=== PATIENT | female | born 1985 | race Caucasian/White ===

== ENCOUNTER 2018-07-29 08:23 | Inpatient (IN) | payer OTHER, BC ==
[~2018-07-29 08:23] MED LIST: CEFAZOLIN 1 GM INJ
[2018-07-29] MEDS: SOD CHLORIDE 0.9% 1,000 ML IV ×2 (09:01→21:28)
[2018-07-29] MEDS: ONDANSETRON 4 MG INJ IV (09:01)
[2018-07-29] MEDS: morphine 4 MG/ML VIAL IV ×2 (09:01→12:34)
[2018-07-29 09:09] LABS: ADD MAN DIFF? NO
[2018-07-29 09:15] LABS: WHITE BLOOD COUNT 10.8 10^3/ul (4.8-10.8)
[2018-07-29 09:15] LABS: ABNORMAL IP MESSAGE 1; BASOPHILS % 0.2 % (0.0-2.0); EOSINOPHILS # 0.1 10^3/ul (0.0-0.5); EOSINOPHILS % 1.3 % (0.0-7.0); HEMATOCRIT 30.2 % (37.0-47.0); HEMOGLOBIN 8.4 g/dl (12.0-16.0); LYMPHOCYTES # 3.8 10^3/ul (0.8-2.9); LYMPHOCYTES % 35.2 % (15.0-51.0); MEAN CORPUSCULAR HEMOGLOBIN 18.4 pg (29.0-33.0); MEAN CORPUSCULAR HGB CONC 27.8 g/dl (32.0-37.0); MEAN CORPUSCULAR VOLUME 66.2 fl (82.0-101.0); MEAN PLATELET VOLUME 8.9 fl (7.4-10.4); MONOCYTE # 0.6 10^3/ul (0.3-0.9); MONOCYTES % 5.5 % (0.0-11.0); NEUTROPHIL # 6.2 10^3/ul (1.6-7.5); NEUTROPHILS % 57.4 % (39.0-77.0); PLATELET COUNT 598 10^3/UL (140-415); RED BLOOD COUNT 4.56 10^6/ul (4.20-5.40); RED CELL DISTRIBUTION WIDTH 17.8 % (11.5-14.5)
[2018-07-29 09:20] LABS: POSITIVE DIFF @See below
[2018-07-29 09:37] LABS: ALANINE AMINOTRANSFERASE 29 IU/L (13-69); ALBUMIN 3.7 g/dl (3.3-4.9); ALBUMIN/GLOBULIN RATIO 1.05; ALKALINE PHOSPHATASE 81 IU/L (42-121); ANION GAP 5 (5-13); ASPARTATE AMINO TRANSFERASE 24 IU/L (15-46); BILIRUBIN,INDIRECT 0.2 mg/dl (0-1.1); BILIRUBIN,TOTAL 0.2 mg/dl (0.2-1.3); BLOOD UREA NITROGEN 15 mg/dl (7-20); CALCIUM 9.2 mg/dl (8.4-10.2); CARBON DIOXIDE 27 mmol/L (21-31); CHLORIDE 107 mmol/L (97-110); CREATININE 0.59 mg/dl (0.44-1.00); Estimated GFR > 60 mL/min (>60); GLUCOSE 133 mg/dl (70-220); LIPASE 396 U/L (23-300); POTASSIUM 4.5 mmol/L (3.5-5.1); SODIUM 139 mmol/L (135-144); TOTAL PROTEIN 7.2 g/dl (6.1-8.1)
[2018-07-29] MEDS: KETOROLAC 30 MG INJ IV (09:47)
[2018-07-29 09:48] LABS: UR BILIRUBIN (Dip) NEGATIVE (NEGATIVE); UR BLOOD (Dip) NEGATIVE (NEGATIVE); UR CLARITY CLEAR (CLEAR); UR COLOR YELLOW (YELLOW); UR GLUCOSE (Dip) NEGATIVE (NEGATIVE); UR KETONES (Dip) NEGATIVE (NEGATIVE); UR NITRITE (Dip) NEGATIVE (NEGATIVE); UR TOTAL PROTEIN (Dip) NEGATIVE (NEGATIVE); UR UROBILINOGEN (Dip) NEGATIVE (NEGATIVE); URINE SPECIFIC GRAVITY (Dip) 1.025 (1.003-1.030)
[2018-07-29 09:49] LABS: ADD UMIC NO; UR ASCORBIC ACID NEGATIVE (NEGATIVE); UR BACTERIA FEW /HPF (NONE SEEN); UR LEUKOCYTE ESTERASE (Dip) NEGATIVE Leu/ul (NEGATIVE); UR MUCUS FEW /HPF (NONE SEEN); UR RBC 4 /HPF (0-5); UR SQUAMOUS EPITHELIAL CELL FEW /HPF (FEW); UR WBC 2 /HPF (0-5)
[2018-07-29] MEDS: LORAZEPAM 2 MG INJ IV (10:41)
[2018-07-29] MEDS: DIPHENHYDRAMINE 50 MG INJ IV (14:24)
[2018-07-29] MEDS ORDERED: ONDANSETRON 4 MG INJ IV ×3 (14:30→20:00)
[2018-07-29] MEDS ORDERED: ACETAMINOPHEN 325 MG TAB PO ×2 (14:30→20:00)
[2018-07-29] MEDS ORDERED: LIDOCAINE 1%/EPI (1:100,000) (MDV) 20 ML (15:52)
[2018-07-29] MEDS ORDERED: ROCURONIUM 50 MG INJ (16:12)
[2018-07-29] MEDS ORDERED: SUCCINYLCHOLINE CHLORIDE 100 MG/5 ML SYG IV (16:12)
[2018-07-29] MEDS ORDERED: GLYCOPYRROLATE 0.4 MG INJ ×2 (16:12→17:02)
[2018-07-29] MEDS ORDERED: PROPOFOL 20 ML (16:12)
[2018-07-29] MEDS ORDERED: NEOSTIGMINE 3 MG/3 ML SYRINGE ×2 (16:12→17:02)
[2018-07-29] MEDS ORDERED: LIDOCAINE 2% (SDV) 5 ML INJ (16:12)
[2018-07-29] MEDS ORDERED: MEPERIDINE 100 MG INJ (16:12)
[2018-07-29] MEDS ORDERED: METOCLOPRAMIDE 10 MG INJ ×2 (17:02→18:10)
[2018-07-29] MEDS ORDERED: ONDANSETRON 4 MG INJ (17:02)
[2018-07-29] MEDS ORDERED: hydrALAzine 20 MG INJ IV (18:00)
[2018-07-29] MEDS ORDERED: DIPHENHYDRAMINE 50 MG INJ IV (18:00)
[2018-07-29] MEDS ORDERED: MIDAZOLAM 1 MG/ML 2 ML INJ IV (18:00)
[2018-07-29] MEDS ORDERED: EPHEDrine SULFATE 50 MG/5 ML SYG IV (18:00)
[2018-07-29] MEDS ORDERED: FENTAnyl 50 MCG/ML VIAL IV ×3 (18:00)
[2018-07-29] MEDS ORDERED: LABETALOL HCL 20MG INJ IV (18:00)
[2018-07-29] MEDS ORDERED: OXYCODONE/ACETAMINOPHEN (5/325) TAB PO ×2 (18:00)
[2018-07-29] MEDS ORDERED: HYDROmorphONE 1 MG/5 ML IV SYRINGE IV ×3 (18:00→18:10)
[2018-07-29] MEDS ORDERED: MEPERIDINE 25 MG INJ IV (18:00)
[2018-07-29] MEDS: HYDROmorphONE 1 MG/5 ML IV SYRINGE IV ×2 (18:13→18:40)
[2018-07-29] MEDS: METOCLOPRAMIDE 10 MG INJ IV (18:13)
[2018-07-29] MEDS ORDERED: BISACODYL (EC) 5 MG TAB PO (20:00)
[2018-07-29] MEDS ORDERED: NACL 0.9% 3 ML SYG IV (20:00)
[2018-07-29] MEDS ORDERED: DOCUSATE SODIUM 100 MG CAP PO (20:00)
[2018-07-29] MEDS: morphine 2 MG INJ IV (20:01)
[2018-07-29 20:24] LABS: ADD MAN DIFF? NO
[2018-07-29 20:26] LABS: WHITE BLOOD COUNT 12.3 10^3/ul (4.8-10.8)
[2018-07-29 20:26] LABS: ABNORMAL IP MESSAGE 1; BASOPHILS % 0.2 % (0.0-2.0); EOSINOPHILS # 0.1 10^3/ul (0.0-0.5); EOSINOPHILS % 0.8 % (0.0-7.0); HEMATOCRIT 26.8 % (37.0-47.0); HEMOGLOBIN 7.6 g/dl (12.0-16.0); LYMPHOCYTES # 2.7 10^3/ul (0.8-2.9); LYMPHOCYTES % 21.6 % (15.0-51.0); MEAN CORPUSCULAR HGB CONC 28.4 g/dl (32.0-37.0); MEAN CORPUSCULAR VOLUME 66.8 fl (82.0-101.0); MEAN PLATELET VOLUME 8.4 fl (7.4-10.4); MONOCYTE # 0.5 10^3/ul (0.3-0.9); MONOCYTES % 4.2 % (0.0-11.0); NEUTROPHILS % 72.6 % (39.0-77.0); PLATELET COUNT 468 10^3/UL (140-415); RED BLOOD COUNT 4.01 10^6/ul (4.20-5.40); RED CELL DISTRIBUTION WIDTH 17.7 % (11.5-14.5)
[2018-07-29 20:45] LABS: ALANINE AMINOTRANSFERASE 31 IU/L (13-69); ALBUMIN 3.3 g/dl (3.3-4.9); ALKALINE PHOSPHATASE 70 IU/L (42-121); ANION GAP 7 (5-13); ASPARTATE AMINO TRANSFERASE 21 IU/L (15-46); BILIRUBIN,INDIRECT 0.1 mg/dl (0-1.1); BILIRUBIN,TOTAL 0.1 mg/dl (0.2-1.3); BLOOD UREA NITROGEN 15 mg/dl (7-20); CALCIUM 8.6 mg/dl (8.4-10.2); CARBON DIOXIDE 26 mmol/L (21-31); CHLORIDE 105 mmol/L (97-110); CREATININE 0.49 mg/dl (0.44-1.00); Estimated GFR > 60 mL/min (>60); GLUCOSE 119 mg/dl (70-220); LIPASE 316 U/L (23-300); POTASSIUM 4.2 mmol/L (3.5-5.1); SODIUM 138 mmol/L (135-144); TOTAL PROTEIN 6.6 g/dl (6.1-8.1)
[2018-07-29] MEDS: HYDROmorphONE 0.5 MG/0.5 ML SYG IV (21:28)
[2018-07-29] MEDS: HYDROmorphONE 1 MG/ML SYG IV (23:16)
[2018-07-30] MEDS: LORAZEPAM 2 MG INJ IV ×2 (00:33→23:06)
[2018-07-30] MEDS: LEVOFLOXACIN 750MG/D5W (PMX) 150 ML IVPB (00:34)
[2018-07-30] MEDS: HYDROmorphONE 1 MG/ML SYG IV ×7 (02:34→21:25)
[2018-07-30] MEDS ORDERED: AL HYDROX/MG HYDROX/SIMETH 30 ML CUP PO ×2 (03:30)
[2018-07-30] MEDS: PANTOPRAZOLE (EC) 40 MG TAB PO (04:08)
[2018-07-30] MEDS: HYDROCODONE/APAP (5/325) TAB PO ×2 (04:09→14:28)
[2018-07-30 05:35] LABS: ADD MAN DIFF? NO
[2018-07-30 05:39] LABS: ABNORMAL IP MESSAGE 1; BASOPHILS % 0.3 % (0.0-2.0); EOSINOPHILS # 0.1 10^3/ul (0.0-0.5); EOSINOPHILS % 1.3 % (0.0-7.0); HEMATOCRIT 25.4 % (37.0-47.0); LYMPHOCYTES # 2.6 10^3/ul (0.8-2.9); LYMPHOCYTES % 26.4 % (15.0-51.0); MEAN CORPUSCULAR HEMOGLOBIN 18.7 pg (29.0-33.0); MEAN CORPUSCULAR HGB CONC 27.6 g/dl (32.0-37.0); MEAN CORPUSCULAR VOLUME 67.7 fl (82.0-101.0); MEAN PLATELET VOLUME 9.1 fl (7.4-10.4); MONOCYTE # 0.5 10^3/ul (0.3-0.9); MONOCYTES % 4.6 % (0.0-11.0); NEUTROPHIL # 6.7 10^3/ul (1.6-7.5); PLATELET COUNT 454 10^3/UL (140-415); RED BLOOD COUNT 3.75 10^6/ul (4.20-5.40); RED CELL DISTRIBUTION WIDTH 17.9 % (11.5-14.5)
[2018-07-30 05:49] LABS: HEMOGLOBIN A1C 7.5 % (0-5.9)
[2018-07-30] MEDS ORDERED: PANTOPRAZOLE (EC) 40 MG TAB PO (06:00)
[2018-07-30 06:04] LABS: IRON 20 ug/dl (35-150); POSITIVE DIFF @See below
[2018-07-30 06:13] LABS: % IRON SATURATION 4 % SAT (22-52); TOTAL IRON BINDING CAPACITY 471 ug/dl (241-421)
[2018-07-30] MEDS: SOD CHLORIDE 0.9% 1,000 ML IV ×3 (06:14→20:23)
[2018-07-30 06:17] LABS: ALANINE AMINOTRANSFERASE 24 IU/L (13-69); ALKALINE PHOSPHATASE 61 IU/L (42-121); ANION GAP 7 (5-13); ASPARTATE AMINO TRANSFERASE 20 IU/L (15-46); BILIRUBIN,INDIRECT 0.1 mg/dl (0-1.1); BILIRUBIN,TOTAL 0.1 mg/dl (0.2-1.3); BLOOD UREA NITROGEN 12 mg/dl (7-20); CALCIUM 8.2 mg/dl (8.4-10.2); CARBON DIOXIDE 26 mmol/L (21-31); CHLORIDE 103 mmol/L (97-110); CHOLESTEROL 185 mg/dl (100-200); CREATININE 0.48 mg/dl (0.44-1.00); Estimated GFR > 60 mL/min (>60); GLUCOSE 102 mg/dl (70-220); HDL CHOLESTEROL 37 mg/dl (34-82); LDL CHOLESTEROL,CALCULATED 100 mg/dl; MAGNESIUM 1.6 mg/dl (1.7-2.5); SODIUM 136 mmol/L (135-144); TRIGLYCERIDES 240 mg/dl (0-149)
[2018-07-30 06:51] LABS: FERRITIN 3.9 ng/ml (6.2-137.0)
[2018-07-30] MEDS: ONDANSETRON 4 MG INJ IV ×2 (07:52→20:22)
[2018-07-30] MEDS: LEVOTHYROXINE 100 MCG TAB PO (09:26)
[2018-07-30] MEDS: SOD CHLORIDE 0.9% 250 ML IV* (17:06)
[2018-07-30 21:45] LABS: IMMEDIATE SPIN CROSSMATCH 1 1
[2018-07-31] MEDS: HYDROmorphONE 1 MG/ML SYG IV ×8 (00:25→23:46)
[2018-07-31] MEDS: LEVOFLOXACIN 750MG/D5W (PMX) 150 ML IVPB ×2 (01:23→23:24)
[2018-07-31 05:32] LABS: ADD MAN DIFF? NO
[2018-07-31 05:36] LABS: BASOPHILS % 0.3 % (0.0-2.0); EOSINOPHILS # 0.2 10^3/ul (0.0-0.5); EOSINOPHILS % 2.3 % (0.0-7.0); HEMATOCRIT 29.2 % (37.0-47.0); HEMOGLOBIN 8.6 g/dl (12.0-16.0); LYMPHOCYTES # 2.6 10^3/ul (0.8-2.9); LYMPHOCYTES % 28.9 % (15.0-51.0); MEAN CORPUSCULAR HEMOGLOBIN 20.3 pg (29.0-33.0); MEAN CORPUSCULAR HGB CONC 29.5 g/dl (32.0-37.0); MEAN PLATELET VOLUME 8.9 fl (7.4-10.4); MONOCYTE # 0.6 10^3/ul (0.3-0.9); MONOCYTES % 6.5 % (0.0-11.0); NEUTROPHIL # 5.4 10^3/ul (1.6-7.5); NEUTROPHILS % 61.5 % (39.0-77.0); PLATELET COUNT 470 10^3/UL (140-415); RED BLOOD COUNT 4.23 10^6/ul (4.20-5.40); RED CELL DISTRIBUTION WIDTH 19.7 % (11.5-14.5)
[2018-07-31 05:36] LABS: WHITE BLOOD COUNT 8.8 10^3/ul (4.8-10.8)
[2018-07-31] MEDS: PANTOPRAZOLE (EC) 40 MG TAB PO (05:42)
[2018-07-31 06:26] LABS: ANION GAP 6 (5-13); BLOOD UREA NITROGEN 5 mg/dl (7-20); CALCIUM 8.9 mg/dl (8.4-10.2); CARBON DIOXIDE 28 mmol/L (21-31); CHLORIDE 105 mmol/L (97-110); CREATININE 0.45 mg/dl (0.44-1.00); Estimated GFR > 60 mL/min (>60); GLUCOSE 114 mg/dl (70-220); POTASSIUM 3.7 mmol/L (3.5-5.1); SODIUM 139 mmol/L (135-144)
[2018-07-31] MEDS: LEVOTHYROXINE 100 MCG TAB PO (08:51)
[2018-07-31] MEDS: ONDANSETRON 4 MG INJ IV ×2 (08:52→19:57)
[2018-07-31] MEDS: SOD FERRIC GLUC COMPLX 125 MG in SOD CHLORIDE 0.9% 100 ML IVPB (12:29)
[2018-07-31] MEDS: SOD CHLORIDE 0.9% 1,000 ML IV (12:35)
[2018-07-31] MEDS: HYDROCODONE/APAP (5/325) TAB PO (21:17)
[2018-08-01] MEDS: HYDROmorphONE 1 MG/ML SYG IV ×7 (03:45→23:57)
[2018-08-01 05:45] LABS: ADD MAN DIFF? NO
[2018-08-01 05:52] LABS: BASOPHILS % 0.4 % (0.0-2.0); EOSINOPHILS # 0.1 10^3/ul (0.0-0.5); EOSINOPHILS % 1.3 % (0.0-7.0); HEMATOCRIT 29.3 % (37.0-47.0); HEMOGLOBIN 8.8 g/dl (12.0-16.0); LYMPHOCYTES # 2.2 10^3/ul (0.8-2.9); MEAN CORPUSCULAR HEMOGLOBIN 21.5 pg (29.0-33.0); MEAN CORPUSCULAR VOLUME 71.5 fl (82.0-101.0); MONOCYTE # 0.5 10^3/ul (0.3-0.9); MONOCYTES % 5.6 % (0.0-11.0); NEUTROPHIL # 6.2 10^3/ul (1.6-7.5); NEUTROPHILS % 67.8 % (39.0-77.0); PLATELET COUNT 467 10^3/UL (140-415); RED CELL DISTRIBUTION WIDTH 21.2 % (11.5-14.5)
[2018-08-01 05:52] LABS: WHITE BLOOD COUNT 9.2 10^3/ul (4.8-10.8)
[2018-08-01] MEDS: PANTOPRAZOLE (EC) 40 MG TAB PO (06:15)
[2018-08-01] MEDS: HYDROCODONE/APAP (5/325) TAB PO ×3 (06:15→22:01)
[2018-08-01] MEDS: SOD CHLORIDE 0.9% 1,000 ML IV ×3 (06:18→23:57)
[2018-08-01 06:35] LABS: ANION GAP 9 (5-13); BLOOD UREA NITROGEN 8 mg/dl (7-20); CALCIUM 9.1 mg/dl (8.4-10.2); CARBON DIOXIDE 29 mmol/L (21-31); CHLORIDE 102 mmol/L (97-110); CREATININE 0.42 mg/dl (0.44-1.00); Estimated GFR > 60 mL/min (>60); GLUCOSE 116 mg/dl (70-220); POTASSIUM 3.7 mmol/L (3.5-5.1); SODIUM 140 mmol/L (135-144)
[2018-08-01] MEDS: LEVOTHYROXINE 100 MCG TAB PO (08:00)
[2018-08-01] MEDS: SOD FERRIC GLUC COMPLX 125 MG in SOD CHLORIDE 0.9% 100 ML IVPB (13:26)
[2018-08-01] MEDS: DOCUSATE SODIUM 100 MG CAP PO (20:21)
[2018-08-01] MEDS: ONDANSETRON 4 MG INJ IV (21:26)
[2018-08-01] MEDS: LEVOFLOXACIN 750MG/D5W (PMX) 150 ML IVPB (23:57)
[2018-08-02] MEDS: LORAZEPAM 2 MG INJ IV (01:17)
[2018-08-02] MEDS: HYDROmorphONE 1 MG/ML SYG IV ×4 (03:54→13:11)
[2018-08-02 05:39] LABS: ADD MAN DIFF? NO
[2018-08-02] MEDS: PANTOPRAZOLE (EC) 40 MG TAB PO (05:47)
[2018-08-02 05:51] LABS: ABNORMAL IP MESSAGE 1; BASOPHILS % 0.4 % (0.0-2.0); EOSINOPHILS # 0.2 10^3/ul (0.0-0.5); EOSINOPHILS % 1.8 % (0.0-7.0); HEMATOCRIT 25.1 % (37.0-47.0); HEMOGLOBIN 8.6 g/dl (12.0-16.0); LYMPHOCYTES # 2.5 10^3/ul (0.8-2.9); LYMPHOCYTES % 30.3 % (15.0-51.0); MEAN CORPUSCULAR HEMOGLOBIN 25.7 pg (29.0-33.0); MEAN CORPUSCULAR HGB CONC 34.3 g/dl (32.0-37.0); MEAN CORPUSCULAR VOLUME 74.9 fl (82.0-101.0); MEAN PLATELET VOLUME 9.3 fl (7.4-10.4); MONOCYTE # 0.5 10^3/ul (0.3-0.9); MONOCYTES % 6.2 % (0.0-11.0); NEUTROPHILS % 60.4 % (39.0-77.0); PLATELET COUNT 456 10^3/UL (140-415); POSITIVE DIFF @See below; RED BLOOD COUNT 3.35 10^6/ul (4.20-5.40); RED CELL DISTRIBUTION WIDTH 23.4 % (11.5-14.5)
[2018-08-02 05:51] LABS: WHITE BLOOD COUNT 8.2 10^3/ul (4.8-10.8)
[2018-08-02] MEDS: HYDROCODONE/APAP (5/325) TAB PO ×2 (05:54→14:30)
[2018-08-02 06:33] LABS: ANION GAP 9 (5-13); Estimated GFR > 60 mL/min (>60)
[2018-08-02 06:34] LABS: BLOOD UREA NITROGEN 12 mg/dl (7-20); CALCIUM 9.5 mg/dl (8.4-10.2); CARBON DIOXIDE 29 mmol/L (21-31); CHLORIDE 101 mmol/L (97-110); CREATININE 0.44 mg/dl (0.44-1.00); GLUCOSE 131 mg/dl (70-220); POTASSIUM 3.8 mmol/L (3.5-5.1); SODIUM 139 mmol/L (135-144)
[2018-08-02] MEDS: DOCUSATE SODIUM 100 MG CAP PO (09:18)
[2018-08-02] MEDS: LEVOTHYROXINE 100 MCG TAB PO (09:18)
[2018-08-02] MEDS: SOD FERRIC GLUC COMPLX 125 MG in SOD CHLORIDE 0.9% 100 ML IVPB (12:22)
== END 2018-08-02 16:45 | disposition home or self-care (01) | DRG 742 ==
LOC: FTE 08:23 → PP2 14:20
PROC: 0UB18ZZ Excision of Left Ovary, Via Natural or Artificial Opening Endoscopic (ICD-10-PCS; principal; 2018-07-29 16:00)
DX: N83.512 Torsion of left ovary and ovarian pedicle (principal); J18.9 Pneumonia, unspecified organism; E11.8 Type 2 diabetes mellitus with unspecified complications; E66.9 Obesity, unspecified; Z68.34 Body mass index [BMI] 34.0-34.9, adult; I10 Essential (primary) hypertension; E03.9 Hypothyroidism, unspecified; D64.9 Anemia, unspecified; D50.9 Iron deficiency anemia, unspecified; N92.0 Excessive and frequent menstruation with regular cycle; N94.6 Dysmenorrhea, unspecified
CPT/HCPCS: 36415; 36430; 71045; 74176; 76856; 80048; 80053; 80061; 81003; 81025; 82728; 82962; 83036; 83540; 83690; 83735; 84443; 84703; 85025; 86850; 86900; 86901; 86920; 88104; 88305; 93971; 96374; 96375; 96376; 99285-25

== ENCOUNTER 2018-08-04 14:21 | Emergency (ER) | payer OTHER ==
[2018-08-04] MEDS ORDERED: KETOROLAC 30 MG INJ IM (14:44)
[2018-08-04] MEDS: SOD CHLORIDE 0.9% 500 ML IV (15:05)
[2018-08-04 15:11] LABS: ADD MAN DIFF? NO
[2018-08-04] MEDS: ONDANSETRON 4 MG INJ IV (15:12)
[2018-08-04] MEDS: HYDROmorphONE 0.5 MG/0.5 ML SYG IV (15:12)
[2018-08-04 15:15] LABS: ABNORMAL IP MESSAGE 1; BASOPHILS % 0.4 % (0.0-2.0); EOSINOPHILS # 0.1 10^3/ul (0.0-0.5); EOSINOPHILS % 0.9 % (0.0-7.0); HEMATOCRIT 35.3 % (37.0-47.0); HEMOGLOBIN 11.1 g/dl (12.0-16.0); LYMPHOCYTES % 21.8 % (15.0-51.0); MEAN CORPUSCULAR HEMOGLOBIN 23.3 pg (29.0-33.0); MEAN CORPUSCULAR HGB CONC 31.4 g/dl (32.0-37.0); MEAN PLATELET VOLUME 8.8 fl (7.4-10.4); MONOCYTE # 0.5 10^3/ul (0.3-0.9); MONOCYTES % 5.2 % (0.0-11.0); NEUTROPHIL # 6.4 10^3/ul (1.6-7.5); NEUTROPHILS % 70.8 % (39.0-77.0); PLATELET COUNT 507 10^3/UL (140-415); RED BLOOD COUNT 4.77 10^6/ul (4.20-5.40); RED CELL DISTRIBUTION WIDTH 25.2 % (11.5-14.5)
[2018-08-04 15:21] LABS: POSITIVE DIFF @See below
[2018-08-04 15:32] LABS: ADD UMIC YES; UR ASCORBIC ACID NEGATIVE (NEGATIVE); UR BACTERIA FEW /HPF (NONE SEEN); UR BILIRUBIN (Dip) NEGATIVE (NEGATIVE); UR BLOOD (Dip) 3+ mg/dL (NEGATIVE); UR CLARITY SLIGHTLY CLOUDY (CLEAR); UR COLOR YELLOW (YELLOW); UR GLUCOSE (Dip) NEGATIVE (NEGATIVE); UR KETONES (Dip) NEGATIVE (NEGATIVE); UR LEUKOCYTE ESTERASE (Dip) NEGATIVE Leu/ul (NEGATIVE); UR MUCUS MODERATE /HPF (NONE SEEN); UR NITRITE (Dip) NEGATIVE (NEGATIVE); UR RBC > 182 /HPF (0-5); UR SQUAMOUS EPITHELIAL CELL MODERATE /HPF (FEW); UR TOTAL PROTEIN (Dip) 3+ mg/dl (NEGATIVE); UR UROBILINOGEN (Dip) NEGATIVE (NEGATIVE); UR WBC 2 /HPF (0-5)
[2018-08-04 15:33] LABS: ANION GAP 12 (5-13); BLOOD UREA NITROGEN 10 mg/dl (7-20); CALCIUM 10.6 mg/dl (8.4-10.2); CARBON DIOXIDE 26 mmol/L (21-31); CHLORIDE 103 mmol/L (97-110); CREATININE 0.48 mg/dl (0.44-1.00); Estimated GFR > 60 mL/min (>60); GLUCOSE 165 mg/dl (70-220); POTASSIUM 4.3 mmol/L (3.5-5.1); SODIUM 141 mmol/L (135-144)
[2018-08-04] MEDS: ONDANSETRON (ODT) 4 MG TAB ODT (16:31)
[2018-08-04] MEDS: HYDROCODONE/APAP (10/325) TAB PO (16:31)
== END 2018-08-04 16:44 | disposition home or self-care (01) ==
LOC: FTE 16:44
DX: G89.18 Other acute postprocedural pain (principal); R10.2 Pelvic and perineal pain; E11.9 Type 2 diabetes mellitus without complications; E03.9 Hypothyroidism, unspecified; Z79.4 Long term (current) use of insulin
CPT/HCPCS: 36415; 71046; 74176; 80048; 81001; 81025; 84703; 85025; 96374; 96375; 99285-25

== ENCOUNTER 2018-08-22 16:56 | Emergency (ER) | payer OTHER ==
[2018-08-22] MEDS: ONDANSETRON 4 MG INJ IV (19:56)
[2018-08-22] MEDS: KETOROLAC 15 MG INJ IV (19:57)
[2018-08-22] MEDS: SOD CHLORIDE 0.9% 1,000 ML IV (20:01)
[2018-08-22] MEDS: morphine 4 MG/ML VIAL IV (20:20)
[2018-08-22 20:21] LABS: ADD MAN DIFF? NO
[2018-08-22 20:26] LABS: WHITE BLOOD COUNT 9.5 10^3/ul (4.8-10.8)
[2018-08-22 20:26] LABS: ABNORMAL IP MESSAGE 1; BASOPHILS % 0.4 % (0.0-2.0); EOSINOPHILS # 0.1 10^3/ul (0.0-0.5); EOSINOPHILS % 1.2 % (0.0-7.0); HEMOGLOBIN 11.5 g/dl (12.0-16.0); LYMPHOCYTES # 2.4 10^3/ul (0.8-2.9); LYMPHOCYTES % 25.3 % (15.0-51.0); MEAN CORPUSCULAR HEMOGLOBIN 22.6 pg (29.0-33.0); MEAN CORPUSCULAR HGB CONC 30.3 g/dl (32.0-37.0); MEAN CORPUSCULAR VOLUME 74.7 fl (82.0-101.0); MEAN PLATELET VOLUME 9.6 fl (7.4-10.4); MONOCYTE # 0.5 10^3/ul (0.3-0.9); MONOCYTES % 5.6 % (0.0-11.0); NEUTROPHIL # 6.4 10^3/ul (1.6-7.5); NEUTROPHILS % 67.1 % (39.0-77.0); PLATELET COUNT 328 10^3/UL (140-415); RED BLOOD COUNT 5.09 10^6/ul (4.20-5.40); RED CELL DISTRIBUTION WIDTH 25.2 % (11.5-14.5)
[2018-08-22 20:31] LABS: POSITIVE DIFF @See below
[2018-08-22 20:34] LABS: ADD UMIC YES; UR ASCORBIC ACID 20 mg/dL (NEGATIVE); UR BACTERIA FEW /HPF (NONE SEEN); UR BILIRUBIN (Dip) NEGATIVE (NEGATIVE); UR BLOOD (Dip) NEGATIVE (NEGATIVE); UR CALCIUM OXALATE CRYSTAL FEW /HPF (NONE SEEN); UR CLARITY CLOUDY (CLEAR); UR COLOR YELLOW (YELLOW); UR GLUCOSE (Dip) NEGATIVE (NEGATIVE); UR KETONES (Dip) NEGATIVE (NEGATIVE); UR LEUKOCYTE ESTERASE (Dip) TRACE Leu/ul (NEGATIVE); UR MUCUS FEW /HPF (NONE SEEN); UR NITRITE (Dip) NEGATIVE (NEGATIVE); UR RBC 2 /HPF (0-5); UR SPECIFIC GRAVITY (Dip) 1.025 (1.003-1.030); UR SQUAMOUS EPITHELIAL CELL MODERATE /HPF (FEW); UR TOTAL PROTEIN (Dip) 1+ mg/dl (NEGATIVE); UR UROBILINOGEN (Dip) NEGATIVE (NEGATIVE); UR WBC 2 /HPF (0-5)
[2018-08-22 20:45] LABS: INR 0.92; PROTIME 12.5 Sec (11.9-14.9)
[2018-08-22 20:46] LABS: PARTIAL THROMBOPLASTIN TIME 31.8 Sec (23.0-35.0)
[2018-08-22 20:50] LABS: ALANINE AMINOTRANSFERASE 17 IU/L (13-69); ALBUMIN/GLOBULIN RATIO 1.14; ALKALINE PHOSPHATASE 72 IU/L (42-121); ANION GAP 9 (5-13); ASPARTATE AMINO TRANSFERASE 18 IU/L (15-46); BILIRUBIN,INDIRECT 0.2 mg/dl (0-1.1); BILIRUBIN,TOTAL 0.2 mg/dl (0.2-1.3); BLOOD UREA NITROGEN 13 mg/dl (7-20); CALCIUM 9.4 mg/dl (8.4-10.2); CARBON DIOXIDE 27 mmol/L (21-31); CHLORIDE 102 mmol/L (97-110); CREATININE 0.54 mg/dl (0.44-1.00); Estimated GFR > 60 mL/min (>60); GLUCOSE 209 mg/dl (70-220); LIPASE 200 U/L (23-300); SODIUM 138 mmol/L (135-144); TOTAL PROTEIN 7.5 g/dl (6.1-8.1)
[2018-08-22] MEDS: IOHEXOL 300MG/ML 150 ML BTL (20:58)
[2018-08-22] MEDS: SOD CHLORIDE 0.9% 100 ML (20:58)
== END 2018-08-22 22:28 | disposition home or self-care (01) ==
LOC: FTE 16:56
DX: R10.31 Right lower quadrant pain (principal); R11.10 Vomiting, unspecified; R10.2 Pelvic and perineal pain; Z79.4 Long term (current) use of insulin
CPT/HCPCS: 36415; 74177; 76830; 76856; 80053; 81001; 81025; 83690; 85025; 85610; 85730; 96374; 96375; 99285-25

== ENCOUNTER 2018-09-12 18:37 | Emergency (ER) | payer OTHER ==
[2018-09-12] MEDS: DEXAMETHASONE 10 MG/ML 1 ML INJ IM (20:23)
[2018-09-12] MEDS: KETOROLAC 30 MG INJ IM (20:24)
== END 2018-09-12 21:42 | disposition home or self-care (01) ==
LOC: FTE 18:37
DX: M54.42 Lumbago with sciatica, left side (principal)
CPT/HCPCS: 81025; 96372; 99284-25

== ENCOUNTER 2018-09-13 05:21 | Inpatient (IN) | payer OTHER ==
[2018-09-13 06:53] LABS: ADD MAN DIFF? NO
[2018-09-13] MEDS: NALBUPHINE HCL (10 MG/1 ML) INJ IV ×2 (06:55→08:43)
[2018-09-13] MEDS: ONDANSETRON 4 MG INJ IV (06:55)
[2018-09-13 06:56] LABS: ABNORMAL IP MESSAGE 1; BASOPHILS % 0.1 % (0.0-2.0); HEMATOCRIT 39.4 % (37.0-47.0); HEMOGLOBIN 12.4 g/dl (12.0-16.0); LYMPHOCYTES % 5.6 % (15.0-51.0); MEAN CORPUSCULAR HEMOGLOBIN 23.8 pg (29.0-33.0); MEAN CORPUSCULAR HGB CONC 31.5 g/dl (32.0-37.0); MEAN CORPUSCULAR VOLUME 75.6 fl (82.0-101.0); MEAN PLATELET VOLUME 9.5 fl (7.4-10.4); MONOCYTE # 0.1 10^3/ul (0.3-0.9); MONOCYTES % 0.8 % (0.0-11.0); NEUTROPHIL # 16.5 10^3/ul (1.6-7.5); NEUTROPHILS % 92.9 % (39.0-77.0); PLATELET COUNT 394 10^3/UL (140-415); RED BLOOD COUNT 5.21 10^6/ul (4.20-5.40); RED CELL DISTRIBUTION WIDTH 23.4 % (11.5-14.5)
[2018-09-13 06:56] LABS: WHITE BLOOD COUNT 17.8 10^3/ul (4.8-10.8)
[2018-09-13 07:00] LABS: POSITIVE DIFF @See below
[2018-09-13 07:20] LABS: ALANINE AMINOTRANSFERASE 29 IU/L (13-69); ALBUMIN 4.5 g/dl (3.3-4.9); ALBUMIN/GLOBULIN RATIO 1.21; ALKALINE PHOSPHATASE 90 IU/L (42-121); ANION GAP 17 (5-13); ASPARTATE AMINO TRANSFERASE 25 IU/L (15-46); BILIRUBIN,INDIRECT 0.4 mg/dl (0-1.1); BILIRUBIN,TOTAL 0.4 mg/dl (0.2-1.3); BLOOD UREA NITROGEN 27 mg/dl (7-20); CALCIUM 10.7 mg/dl (8.4-10.2); CARBON DIOXIDE 17 mmol/L (21-31); CHLORIDE 101 mmol/L (97-110); Estimated GFR > 60 mL/min (>60); LIPASE 273 U/L (23-300); POTASSIUM 5.6 mmol/L (3.5-5.1); SODIUM 135 mmol/L (135-144); TOTAL PROTEIN 8.2 g/dl (6.1-8.1)
[2018-09-13 07:49] LABS: GLUCOSE 520 mg/dl (70-220)
[2018-09-13] MEDS: SOD CHLORIDE 0.9% 100 ML (08:14)
[2018-09-13] MEDS: IOHEXOL 300MG/ML 150 ML BTL (08:17)
[2018-09-13] MEDS: INSULIN LISPRO 100 UNIT/ML VIAL SC ×2 (08:41→13:41)
[2018-09-13] MEDS: SOD CHLORIDE 0.9% 1,000 ML IV ×3 (08:43→14:31)
[2018-09-13] MEDS: ACCU-CHEK XX ×2 (08:43→13:30)
[2018-09-13] MEDS ORDERED: NALBUPHINE HCL (10 MG/1 ML) INJ IV (11:30)
[2018-09-13] MEDS: KETOROLAC 30 MG INJ IV (12:31)
[2018-09-13 12:39] LABS: ANION GAP 16 (5-13); BLOOD UREA NITROGEN 22 mg/dl (7-20); CALCIUM 9.5 mg/dl (8.4-10.2); CARBON DIOXIDE 14 mmol/L (21-31); CHLORIDE 108 mmol/L (97-110); CREATININE 0.83 mg/dl (0.44-1.00); Estimated GFR > 60 mL/min (>60); SODIUM 138 mmol/L (135-144)
[2018-09-13 12:58] LABS: POTASSIUM 5.6 mmol/L (3.5-5.1)
[2018-09-13 13:06] LABS: GLUCOSE 553 mg/dl (70-220)
[2018-09-13 13:38] LABS: ACETONE NEGATIVE (NEGATIVE)
[2018-09-13] MEDS ORDERED: ACETAMINOPHEN 325 MG TAB PO (14:30)
[2018-09-13] MEDS ORDERED: ONDANSETRON 4 MG INJ IV (14:30)
[2018-09-13] MEDS ORDERED: GLUCAGON 1 MG INJ IM (15:00)
[2018-09-13] MEDS ORDERED: GLUCOSE GEL 15 GRAM TUBE BUCCAL (15:00)
[2018-09-13] MEDS ORDERED: GLUCOSE GEL 15 GRAM TUBE PO ×2 (15:00)
[2018-09-13] MEDS ORDERED: DEXTROSE 50% 50 ML SYRINGE IV ×2 (15:00)
[2018-09-13] MEDS ORDERED: NACL 0.9% 3 ML SYG IV (15:00)
[2018-09-13] MEDS: HYDROCODONE/APAP (5/325) TAB PO ×2 (16:45→23:57)
[2018-09-13] MEDS: INSULIN ASPART [NOVOLOG] 3 ML PEN SC ×3 (17:45→22:32)
[2018-09-13] MEDS: KETOROLAC 15 MG INJ IV (18:23)
[2018-09-13] MEDS: INSULIN GLARGINE [LANTus] (100 UNITS/ML) SYG SC (22:30)
[2018-09-13] MEDS: morphine 2 MG INJ IV (22:33)
[2018-09-13 22:50] LABS: ANION GAP 8 (5-13); BLOOD UREA NITROGEN 20 mg/dl (7-20); CALCIUM 10.2 mg/dl (8.4-10.2); CARBON DIOXIDE 23 mmol/L (21-31); CHLORIDE 107 mmol/L (97-110); CREATININE 0.75 mg/dl (0.44-1.00); Estimated GFR > 60 mL/min (>60); GLUCOSE 284 mg/dl (70-220); POTASSIUM 4.9 mmol/L (3.5-5.1); SODIUM 138 mmol/L (135-144)
[2018-09-14] MEDS: INSULIN ASPART [NOVOLOG] 3 ML PEN SC ×5 (03:27→12:04)
[2018-09-14] MEDS: ACCU-CHEK XX (05:59)
[2018-09-14 06:15] LABS: ADD MAN DIFF? NO
[2018-09-14 06:25] LABS: ABNORMAL IP MESSAGE 1; BASOPHILS % 0.2 % (0.0-2.0); HEMATOCRIT 37.8 % (37.0-47.0); HEMOGLOBIN 11.8 g/dl (12.0-16.0); LYMPHOCYTES # 3.6 10^3/ul (0.8-2.9); LYMPHOCYTES % 17.5 % (15.0-51.0); MEAN CORPUSCULAR HEMOGLOBIN 23.9 pg (29.0-33.0); MEAN CORPUSCULAR HGB CONC 31.2 g/dl (32.0-37.0); MEAN CORPUSCULAR VOLUME 76.5 fl (82.0-101.0); MEAN PLATELET VOLUME 9.5 fl (7.4-10.4); MONOCYTE # 0.9 10^3/ul (0.3-0.9); MONOCYTES % 4.3 % (0.0-11.0); NEUTROPHIL # 15.6 10^3/ul (1.6-7.5); PLATELET COUNT 394 10^3/UL (140-415); RED BLOOD COUNT 4.94 10^6/ul (4.20-5.40)
[2018-09-14 06:25] LABS: WHITE BLOOD COUNT 20.3 10^3/ul (4.8-10.8)
[2018-09-14 06:39] LABS: HEMOGLOBIN A1C 7.3 % (0-5.9)
[2018-09-14 06:59] LABS: ALANINE AMINOTRANSFERASE 25 IU/L (13-69); ALBUMIN 3.9 g/dl (3.3-4.9); ALBUMIN/GLOBULIN RATIO 1.21; ALKALINE PHOSPHATASE 73 IU/L (42-121); ANION GAP 7 (5-13); ASPARTATE AMINO TRANSFERASE 14 IU/L (15-46); BILIRUBIN,INDIRECT 0.3 mg/dl (0-1.1); BILIRUBIN,TOTAL 0.3 mg/dl (0.2-1.3); BLOOD UREA NITROGEN 19 mg/dl (7-20); CALCIUM 9.6 mg/dl (8.4-10.2); CARBON DIOXIDE 26 mmol/L (21-31); CHLORIDE 106 mmol/L (97-110); CREATININE 0.58 mg/dl (0.44-1.00); Estimated GFR > 60 mL/min (>60); GLUCOSE 184 mg/dl (70-220); POSITIVE DIFF @See below; POTASSIUM 4.5 mmol/L (3.5-5.1); SODIUM 139 mmol/L (135-144); TOTAL PROTEIN 7.1 g/dl (6.1-8.1)
[2018-09-14] MEDS: metFORMIN 500 MG TAB PO (08:19)
[2018-09-14] MEDS: morphine 2 MG INJ IV (08:21)
== END 2018-09-14 12:42 | disposition home or self-care (01) | DRG 638 ==
LOC: PP2 15:46 → E/R 05:21 → PP2 14:28
DX: E11.65 Type 2 diabetes mellitus with hyperglycemia (principal); N17.9 Acute kidney failure, unspecified; E87.2 Acidosis; R10.9 Unspecified abdominal pain; E66.9 Obesity, unspecified; Z68.33 Body mass index [BMI] 33.0-33.9, adult; Z98.84 Bariatric surgery status; Z87.891 Personal history of nicotine dependence; Z79.84 Long term (current) use of oral hypoglycemic drugs
CPT/HCPCS: 36415; 74177; 80048; 80053; 82010; 82962; 83036; 83690; 84703; 85025; 96372; 96374; 96375; 99285-25; G0378

== ENCOUNTER 2018-10-05 01:37 | Emergency (ER) | payer OTHER ==
[2018-10-05 02:41] LABS: ADD MAN DIFF? NO
[2018-10-05 02:44] LABS: BASOPHILS % 0.4 % (0.0-2.0); EOSINOPHILS # 0.2 10^3/ul (0.0-0.5); EOSINOPHILS % 1.8 % (0.0-7.0); HEMOGLOBIN 11.6 g/dl (12.0-16.0); LYMPHOCYTES # 2.9 10^3/ul (0.8-2.9); LYMPHOCYTES % 34.8 % (15.0-51.0); MEAN CORPUSCULAR HEMOGLOBIN 24.7 pg (29.0-33.0); MEAN CORPUSCULAR HGB CONC 30.5 g/dl (32.0-37.0); MEAN CORPUSCULAR VOLUME 80.9 fl (82.0-101.0); MEAN PLATELET VOLUME 8.7 fl (7.4-10.4); MONOCYTE # 0.5 10^3/ul (0.3-0.9); MONOCYTES % 5.3 % (0.0-11.0); NEUTROPHIL # 4.8 10^3/ul (1.6-7.5); NEUTROPHILS % 57.3 % (39.0-77.0); PLATELET COUNT 407 10^3/UL (140-415); RED CELL DISTRIBUTION WIDTH 20.9 % (11.5-14.5)
[2018-10-05 02:44] LABS: WHITE BLOOD COUNT 8.4 10^3/ul (4.8-10.8)
[2018-10-05 02:48] LABS: ADD UMIC YES; UR ASCORBIC ACID NEGATIVE (NEGATIVE); UR BILIRUBIN (Dip) NEGATIVE (NEGATIVE); UR BLOOD (Dip) 3+ mg/dL (NEGATIVE); UR CLARITY CLEAR (CLEAR); UR COLOR STRAW (YELLOW); UR GLUCOSE (Dip) 3+ mg/dL (NEGATIVE); UR KETONES (Dip) TRACE mg/dL (NEGATIVE); UR LEUKOCYTE ESTERASE (Dip) NEGATIVE Leu/ul (NEGATIVE); UR NITRITE (Dip) NEGATIVE (NEGATIVE); UR RBC 171 /HPF (0-5); UR SPECIFIC GRAVITY (Dip) 1.022 (1.003-1.030); UR TOTAL PROTEIN (Dip) 1+ mg/dl (NEGATIVE); UR UROBILINOGEN (Dip) NEGATIVE (NEGATIVE); UR WBC 0 /HPF (0-5)
[2018-10-05] MEDS: SOD CHLORIDE 0.9% 1,000 ML IV (02:48)
[2018-10-05] MEDS: morphine 4 MG/ML VIAL IV (02:49)
[2018-10-05] MEDS: LIDOCAINE/MYLANTA 40 ML BTL PO (02:49)
[2018-10-05] MEDS: ONDANSETRON 4 MG INJ IV (02:49)
[2018-10-05 03:09] LABS: ALANINE AMINOTRANSFERASE 15 IU/L (13-69); ALBUMIN/GLOBULIN RATIO 1.02; ALKALINE PHOSPHATASE 88 IU/L (42-121); ANION GAP 10 (5-13); ASPARTATE AMINO TRANSFERASE 16 IU/L (15-46); BILIRUBIN,INDIRECT 0.2 mg/dl (0-1.1); BILIRUBIN,TOTAL 0.2 mg/dl (0.2-1.3); BLOOD UREA NITROGEN 15 mg/dl (7-20); CALCIUM 9.1 mg/dl (8.4-10.2); CARBON DIOXIDE 25 mmol/L (21-31); CHLORIDE 109 mmol/L (97-110); CREATININE 0.66 mg/dl (0.44-1.00); Estimated GFR > 60 mL/min (>60); GLUCOSE 224 mg/dl (70-220); LIPASE 422 U/L (23-300); POTASSIUM 4.3 mmol/L (3.5-5.1); SODIUM 144 mmol/L (135-144); TOTAL PROTEIN 7.9 g/dl (6.1-8.1)
[2018-10-05] MEDS: HYDROCODONE/APAP (5/325) TAB PO (03:53)
== END 2018-10-05 04:55 | disposition home or self-care (01) ==
LOC: FTE 01:37
DX: N93.9 Abnormal uterine and vaginal bleeding, unspecified (principal); E11.9 Type 2 diabetes mellitus without complications; E03.9 Hypothyroidism, unspecified; D25.9 Leiomyoma of uterus, unspecified; R10.2 Pelvic and perineal pain; Z79.84 Long term (current) use of oral hypoglycemic drugs
CPT/HCPCS: 36415; 76830; 76856; 80053; 81001; 81025; 82962; 83690; 85025; 96361; 96374; 96375; 99285-25

== ENCOUNTER 2018-10-18 16:30 | Emergency (ER) | payer OTHER ==
[2018-10-18 17:16] LABS: URINE PH (Dip) POC 5.5 (5.0-8.5)
[2018-10-18 17:16] LABS: URINE BLOOD (Dip) POC 3+ (NEGATIVE); URINE KETONES (Dip) POC Trace (NEGATIVE); URINE LEUKOCYTE EST (Dip) POC 3+ (NEGATIVE); URINE NITRITE (Dip) POC Negative (NEGATIVE); URINE TOTAL PROTEIN POC 2+ (NEGATIVE)
[2018-10-18] MEDS: KETOROLAC 30 MG INJ IM (17:34)
[2018-10-18] MEDS: PHENAZOPYRIDINE 100 MG TAB PO (17:35)
== END 2018-10-18 18:21 | disposition home or self-care (01) ==
LOC: E/R 16:30
DX: N30.91 Cystitis, unspecified with hematuria (principal); E11.9 Type 2 diabetes mellitus without complications; Z79.84 Long term (current) use of oral hypoglycemic drugs
CPT/HCPCS: 81003; 81025; 96372; 99284-25

== ENCOUNTER 2018-10-31 06:01 | Emergency (ER) | payer OTHER ==
[2018-10-31 06:19] LABS: URINE PH (Dip) POC 7.5 (5.0-8.5)
[2018-10-31 06:19] LABS: URINE BLOOD (Dip) POC Trace-intact (NEGATIVE); URINE GLUCOSE (Dip) POC Negative (NEGATIVE); URINE KETONES (Dip) POC Trace (NEGATIVE); URINE LEUKOCYTE EST (Dip) POC Negative (NEGATIVE); URINE NITRITE (Dip) POC Negative (NEGATIVE); URINE TOTAL PROTEIN POC 1+ (NEGATIVE)
[2018-10-31] MEDS: HYDROCODONE/APAP (5/325) TAB PO ×2 (06:35→08:31)
[2018-10-31] MEDS: ONDANSETRON (ODT) 4 MG TAB ODT (06:35)
[2018-10-31 07:03] LABS: ADD MAN DIFF? NO
[2018-10-31 07:06] LABS: WHITE BLOOD COUNT 10.1 10^3/ul (4.8-10.8)
[2018-10-31 07:06] LABS: BASOPHILS % 0.3 % (0.0-2.0); EOSINOPHILS # 0.2 10^3/ul (0.0-0.5); EOSINOPHILS % 1.8 % (0.0-7.0); HEMATOCRIT 35.3 % (37.0-47.0); HEMOGLOBIN 11.3 g/dl (12.0-16.0); LYMPHOCYTES # 3.2 10^3/ul (0.8-2.9); LYMPHOCYTES % 31.5 % (15.0-51.0); MEAN CORPUSCULAR HEMOGLOBIN 25.7 pg (29.0-33.0); MEAN CORPUSCULAR VOLUME 80.2 fl (82.0-101.0); MEAN PLATELET VOLUME 8.6 fl (7.4-10.4); MONOCYTE # 0.5 10^3/ul (0.3-0.9); MONOCYTES % 5.1 % (0.0-11.0); NEUTROPHIL # 6.2 10^3/ul (1.6-7.5); PLATELET COUNT 361 10^3/UL (140-415); RED CELL DISTRIBUTION WIDTH 15.8 % (11.5-14.5)
[2018-10-31] MEDS: IBUPROFEN 800 MG TAB PO (07:22)
[2018-10-31] MEDS: KETOROLAC 60 MG INJ IM (07:23)
[2018-10-31 07:37] LABS: ALANINE AMINOTRANSFERASE 34 IU/L (13-69); ALBUMIN/GLOBULIN RATIO 1.02; ALKALINE PHOSPHATASE 87 IU/L (42-121); ANION GAP 8 (5-13); ASPARTATE AMINO TRANSFERASE 21 IU/L (15-46); BILIRUBIN,INDIRECT 0.2 mg/dl (0-1.1); BILIRUBIN,TOTAL 0.2 mg/dl (0.2-1.3); BLOOD UREA NITROGEN 15 mg/dl (7-20); CALCIUM 9.1 mg/dl (8.4-10.2); CARBON DIOXIDE 26 mmol/L (21-31); CHLORIDE 106 mmol/L (97-110); CREATININE 0.48 mg/dl (0.44-1.00); Estimated GFR > 60 mL/min (>60); GLUCOSE 147 mg/dl (70-220); LIPASE 351 U/L (23-300); POTASSIUM 4.2 mmol/L (3.5-5.1); SODIUM 140 mmol/L (135-144); TOTAL PROTEIN 7.9 g/dl (6.1-8.1)
== END 2018-10-31 08:33 | disposition home or self-care (01) ==
LOC: FTE 08:33
DX: R10.2 Pelvic and perineal pain (principal); E11.9 Type 2 diabetes mellitus without complications; E03.9 Hypothyroidism, unspecified; Z79.84 Long term (current) use of oral hypoglycemic drugs
CPT/HCPCS: 76830; 76856; 80053; 81003; 81025; 83690; 85025; 87086; 96372; 99285-25

== ENCOUNTER 2018-11-03 11:12 | Emergency (ER) | payer OTHER ==
[2018-11-03] MEDS: KETOROLAC 60 MG INJ IM (12:19)
[2018-11-03] MEDS: HYDROCODONE/APAP (5/325) TAB PO ×2 (12:19→12:52)
[2018-11-03 12:32] LABS: ADD UMIC YES; UR ASCORBIC ACID NEGATIVE (NEGATIVE); UR BACTERIA FEW /HPF (NONE SEEN); UR BILIRUBIN (Dip) NEGATIVE (NEGATIVE); UR BLOOD (Dip) NEGATIVE (NEGATIVE); UR CLARITY CLOUDY (CLEAR); UR COLOR YELLOW (YELLOW); UR GLUCOSE (Dip) NEGATIVE (NEGATIVE); UR KETONES (Dip) NEGATIVE (NEGATIVE); UR LEUKOCYTE ESTERASE (Dip) NEGATIVE Leu/ul (NEGATIVE); UR MUCUS FEW /HPF (NONE SEEN); UR NITRITE (Dip) NEGATIVE (NEGATIVE); UR RBC 0 /HPF (0-5); UR SPECIFIC GRAVITY (Dip) 1.018 (1.003-1.030); UR SQUAMOUS EPITHELIAL CELL FEW /HPF (FEW); UR TOTAL PROTEIN (Dip) NEGATIVE (NEGATIVE); UR UROBILINOGEN (Dip) NEGATIVE (NEGATIVE); UR WBC 1 /HPF (0-5)
== END 2018-11-03 13:07 | disposition home or self-care (01) ==
LOC: FTE 11:12
DX: M54.5 Low back pain (principal); R10.2 Pelvic and perineal pain; E11.9 Type 2 diabetes mellitus without complications; E03.9 Hypothyroidism, unspecified
CPT/HCPCS: 81001; 81025; 87086; 96372; 99284-25